=== PATIENT | male | born 1945 | race Caucasian/White ===

== ENCOUNTER → 2020-01-29 | Outpatient (CLI) | payer OTHER ==
[~2020-01-29] MED LIST: ACETAMINOPHEN650 M5 PO; ASPIRIN EC81 M1 PO; ASPIRIN81 M2; COUMADIN 3 MG TA3 MG PO; DILTIAZEM 24HR240 M1 PO; ELIQUIS2.5 MG PO; ELOQUIST; ENALAPRIL MALEAT5 M1 PO; ENOXAPARIN80 MG/0.8 SQ; FISH OIL 1,0001 EAC5 PO; LIPITOR40 MG PO; NORCO 5-325 TA1 EACH PO; PRILOSEC 20 MG20 MG PO; RYTHMOL150 MG PO
== END ==
LOC: M.LAB 15:27
PROVIDERS: ATTEND Internal Medicine Gastroenterology
DX: Z12.11 Encounter for screening for malignant neoplasm of colon (principal); Z11.59 Encounter for screening for other viral diseases

== ENCOUNTER → 2021-09-04 | Outpatient (CLI) | payer OTHER ==
[2021-09-04 09:55] LABS: CREATININE 0.9 mg/dL (0.6-1.3)
== END ==
LOC: M.CT 08:30
PROVIDERS: ATTEND Family Medicine
DX: N20.0 Calculus of kidney (principal); N28.1 Cyst of kidney, acquired; Z79.01 Long term (current) use of anticoagulants

== ENCOUNTER → 2021-09-06 | Outpatient (CLI) | payer OTHER | LOC: M.MRI 10:43 | PROVIDERS: ATTEND Family Medicine | DX: N28.1 Cyst of kidney, acquired (principal); Z79.01 Long term (current) use of anticoagulants; K76.89 Other specified diseases of liver ==